=== PATIENT | male | born 1975 | race Caucasian/White ===

== ENCOUNTER 2017-08-13 21:18 | Emergency (ER) | payer SELFPAY ==
[~2017-08-13] VITALS: Ht 188 cm; Wt 99.6 kg
[~2017-08-13 21:18] MED LIST: BENICAR20 MG PO; LEXAPRO20 MG PO; NEXIUM20 MG PO; NOHOMEMEDS; PROCARDIA XL30 MG PO; TOPAMAX25 MG PO; TRAZODONE HCL100 MG PO
[2017-08-13 21:20] VITALS: BP 145/94
[2017-08-13 21:45] LABS: HEMATOCRIT 48.4 % (38.0-50.0); HEMOGLOBIN 16.7 G/DL (12.5-16.6); MCH 31.7 PG (29.0-34.0); MCHC 34.5 G/DL (30.0-36.0); MCV 91.8 FL (86-99); PLATELET COUNT 199 K/uL (156-360); RBC DIS.WIDTH-CV 13.1 % (11.8-14.6); RBC DIS.WIDTH-SD 43.8 % (39-53); RED BLOOD COUNT 5.27 M/uL (4.00-5.50); WHITE BLOOD COUNT 4.9 K/uL (4.1-10.2)
[2017-08-13 21:58] LABS: CHLORIDE 100 mEq/L (99-109); POTASSIUM 3.7 mEq/L (3.7-5.4); SODIUM 142 mEq/L (136-147)
[2017-08-13 22:00] LABS: GLUCOSE 96 mg/dL (70-99)
[2017-08-13 22:04] LABS: CREATININE 0.7 mg/dL (0.6-1.3); GFR ESTIMATE (CALCULATED) > 59 mL/min/ (58.99-99999); UREA NITROGEN (BUN) 5 mg/dL (9-23)
[2017-08-13 22:07] LABS: TROP-I INTERPRETATION NEGATIVE; TROPONIN-I < 0.01 ng/mL (0.0-0.30)
[2017-08-13] MEDS ORDERED: LIBRIUM25 MG PO (22:14)
[2017-08-13] MEDS ORDERED: ZITHROMAX Z-PA250 MG PO (22:21)
== END 2017-08-13 22:54 | disposition home or self-care (01) ==
LOC: EME 21:18
DX: J20.9 Acute bronchitis, unspecified (principal); F10.239 Alcohol dependence with withdrawal, unspecified; I10 Essential (primary) hypertension; J45.909 Unspecified asthma, uncomplicated; Z87.442 Personal history of urinary calculi; Z88.0 Allergy status to penicillin
CPT/HCPCS: 71046; 80048; 84484; 85027; 93005; 99281; 99284